=== PATIENT | male | born 1995 | race Caucasian/White ===

== ENCOUNTER 2017-02-03 14:04 | Inpatient (IN) | payer BC, OTHER ==
[~2017-02-03] VITALS: Ht 177.8 cm; Wt 98.0 kg
--- NOTE | ~2017-02-03 | PN ---
Unit #: [id number] #: [id number] Patient: RIK SO [id number] [facility] [address] [place] [address] [id number] I MR#: [id number] NAME: RIK SO ROOM: P208 Age: 21 Sex: M Admission Date: 02/03/2017 : 1995 Attending Physician: Hair Tellez M.D. Admitting Physician: Hair Tellez M.D. Primary Care Physician: Primary Care Physician Shelli PACHECO PROGRESS NOTES DATE OF SERVICE 02/04/2017 DISCUSSION Rik is a 21-year-old male seen on 02/04/2017. Patient requested for larger portion. Reports still feeling sad, depressed, anxious, having withdrawal symptoms. Vital signs 97.9, 67, 18, 120/69. Complete review of systems unremarkable. MENTAL STATUS EXAMINATION General appearance, patient dressed casually. Attention span and concentration fair. Oriented to time, place and person. Mood and affect labile. Speech monotone. Thought process concrete. Patient denied any thoughts of harming self or others but withdrawn, isolative. Recent and remote memory poor. Insight and judgement poor. DIAGNOSES 1. Opiate use disorder severe F11.20. 2. 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 ASSESSMENT/PLAN Advise to continue with current medication and therapeutic protocol. If needed consider further adjustment of medication. Dictated by... Rosaura Bunch/deborah TD: 02/05/2017 04:48 JOB #: [id number] Unit #: [id number] #: [id number] Patient: RIK SO [facility] PROGRESS NOTES Page 1 of 1 X Hair Tellez MD PROGRESS NOTE
--- NOTE | ~2017-02-03 | DS ---
Unit #: [id number] #: [id number] Patient: WAYLON SO [id number] [facility] [address] [place] [address] [id number] I MR#: [id number] NAME: WAYLON SO ROOM: P208 Age: 21 Sex: M Admission Date: 02/03/2017 : 1995 Discharge Date: 02/05/2017 Attending Physician: Hair Tellez M.D. Primary Care Physician: Primary Care Physician No DISCHARGE SUMMARY REASON FOR ADMISSION Depression and substance abuse. DIAGNOSTIC STUDIES LABORATORY RESULTS: Urine drug screen, negative. HOSPITAL COURSE The patient was admitted to inpatient unit on 02/03/2017 and discharged on 02/05/2017. The patient was treated with group therapy, individual therapy, medication management. The patient was responsive to treatment, showed improvement. Subsequently, the patient was discharged with a plan to follow up in outpatient program. DISCHARGE MEDICATIONS None. DISCHARGE DIAGNOSES Psychiatric: Opioid use disorder, severe, F11.20; amphetamine use disorder, severe, F15.20. Secondary diagnosis: Deferred. Medical diagnosis: None. Stressors: Psychosocial stressors. DISCHARGE INSTRUCTIONS The patient to follow up in outpatient clinic as per social services manager. CONDITION ON DISCHARGE The patient was pleasant and cooperative. Denied any psychotic symptom or any suicidal ideation. PROGNOSIS Guarded. DIET AND ACTIVITY As tolerated. Dictated by... Hair Tellez M.D. Unit #: [id number] #: [id number] Patient: WAYLON SO SZC/modl TD: 02/05/2017 17:57 JOB #: [id number] DISCHARGE SUMMARY Page 1 of 1 X Hair Tellez MD X DISCHARGE SUMMARY
--- NOTE | ~2017-02-03 | HP ---
Unit #: [id number] #: [id number] Patient: RIK SO [id number] [place] [address] [id number] I MR#: [id number] NAME: RIK SO ROOM: P208 Age: 21 Sex: M Admission Date: 02/03/2017 : 1995 Attending Physician: Hair Tellez M.D. Admitting Physician: Hair Tellez M.D. Primary Care Physician: Primary Care Physician No HISTORY AND PHYSICAL HISTORY OF PRESENT ILLNESS Rik is a 21 year old admitted to [address] [place] [address] because of his illicit substance abuse which includes opioids and IV meth. He also abuses benzodiazepines. PAST MEDICAL HISTORY 1. History of alcohol abuse. 2. History of illicit substance abuse to include IV meth and opioids taken orally. 3. Psoriasis. PAST SURGICAL HISTORY Nothing reported. ALLERGIES No known drug allergies. SOCIAL HISTORY He does smoke. Drinks alcohol rarely. Admits to poly illicit substance abuse. FAMILY HISTORY Medically noncontributory. REVIEW OF SYSTEMS CONSTITUTIONAL: No fever or chills. HEENT: Denies any sore throat, ear pain or runny nose. CARDIOVASCULAR: Denies chest pain, irregular heart rhythm or palpitations. CHEST: Denies shortness of breath or cough. No hemoptysis. GASTROINTESTINAL: Denies nausea, vomiting, diarrhea or chronic constipation. ENDOCRINE: Denies history of increased thirst or urination. No recent significant weight loss or gain. GENITOURINARY: Denies dysuria, frequency, or hematuria. SKIN: Denies any rashes. HEMATOLOGIC: Denies history of increased bleeding or bruising. MUSCULOSKELETAL: Denies any hot, swollen joints. No generalized muscle pain. NEUROLOGIC: Denies problems with vision or speech. No frequent, severe headaches. No numbness, tingling or weakness in any extremities. Denies loss of bladder or bowel control. CURRENT MEDICATIONS Unit #: [id number] #: [id number] Patient: RIK SO 1. Detox protocol. 2. Nicotine patch 7 mg q. day. PHYSICAL EXAMINATION GENERAL: Alert, well nourished. No apparent distress. VITAL SIGNS: Blood pressure 110/55, heart rate 60, respirations 16, and temperature 98.6. WEIGHT: 216. HEIGHT: 5 feet 10 inches. SKIN: Warm and dry without rash or lesion. HEENT: Normocephalic. TMs not viewed. Oral and nasal passages clear. Conjunctivae clear. PERRLA. EOMs intact. NECK: Supple without lymphadenopathy or thyromegaly. HEART: Regular rate and rhythm without murmur. LUNGS: Clear. ABDOMEN: Soft, nontender. : Not done. EXTREMITIES: No evidence of cyanosis, clubbing or edema. Moves all without focal deficit. NEUROLOGICAL: Grossly within normal limits. Cranial Nerves: II: Visual benito are intact. III, IV AND : Extraocular movements are intact. Pupils are equal, round and reactive to light. V: Facial sensation is grossly normal. VII: Facial movements and expression are normal. VIII: Auditory acuity grossly intact. IX, X: Uvula is midline. Phonation is normal. XI: Patient shrugs shoulders and turns head normally. XII: Tongue protrudes in the midline. Sensory and Motor Function: Sensory and motor sensation is grossly normal. Motor: moves all extremities well. Coordination: Gait is normal. Deep Tendon Reflexes: Intact. IMPRESSION Psychiatric admission. RECOMMENDATIONS PSYCHIATRIC: Per psychiatrist. MEDICAL: I see no contraindication to participate in this facility's activities. MEDICAL PROGNOSIS Good. MEDICAL CONDITION Stable. Dictated by... Elli Dickey P.A.-C. for Rosaura Pinto/albert TD: 02/04/2017 09:09 JOB #: [id number] Unit #: [id number] #: [id number] Patient: RIK SO HISTORY AND PHYSICAL Page 1 of 1 X Elli Dickey HISTORY AND PHYSICAL
--- NOTE | ~2017-02-03 | PA ---
Unit #: [id number] #: [id number] Patient: RIK SO [id number] [facility] [address] [place] [address] [id number] I MR#: [id number] NAME: RIK SO ROOM: P208 Age: 21 Sex: M Admission Date: 02/03/2017 : 1995 Date of Assessment: 02/04/2014 Attending Physician: Hair Tellez M.D. Admitting Physician: Hair Tellez M.D. Primary Care Physician: Primary Care Physician No PSYCHIATRIC ASSESSMENT INFORMANTS The patient reliability, fair informant and chart reliability, good. CHIEF COMPLAINT Detox. HISTORY OF PRESENT ILLNESS Rik is a 21-year-old male, presented with the above-mentioned complaint. The patient has a history of previous admission in 2016. The patient currently reporting needing help with detox. The patient lives by himself. Reported he has been using opioids and amphetamine. The patient reports trying to abstain from drugs several times, but withdrawal symptoms. The patient reported that he wanted to get some help. Feeling sad and depressed, but denied any suicidal or homicidal ideation. Denied any psychotic symptom. The patient scored 15 on CIWA score. The patient reported tobacco use, age of onset 18; alcohol, age of onset 15; marijuana, age of onset 13; opioid, age of onset 16; amphetamine use, age of onset 17; and benzodiazepine use, age of onset 19. Long period of sobriety 3 months. The patient reported no history of blackout, HIV, hepatitis, or withdrawal symptom, but history of IV drug use. Complaining of tremor, muscle cramping, diarrhea, and irritability. Needing inpatient admission at this time for psychiatric stabilization. PAST PSYCHIATRIC HISTORY Remarkable [facility]. FAMILY HISTORY AND SOCIAL HISTORY The patient has a poor support system. Lives by himself. The patient denied any history of any abuse. No legal problems. History of mental illness in maternal and paternal side of the family. MEDICAL HISTORY Unremarkable for any chronic medical illness. Musculoskeletal; muscle strength and tone, no atrophy or abnormal movement. Gait normal. MEDICATION HISTORY None. ALLERGIES No known drug allergies. Unit #: [id number] #: [id number] Patient: RIK SO SUBSTANCE ABUSE HISTORY Please see above. REVIEW OF SYSTEMS HEENT: Eyes, clear. Ears, nose, mouth, and throat; clear. CARDIOVASCULAR: Unremarkable. RESPIRATORY: Unremarkable. GI: Unremarkable. : Unremarkable. SKIN: Unremarkable. LYMPH NODE: Unremarkable. NEUROLOGIC: Unremarkable. ENDOCRINE: Unremarkable. HEMATOLOGIC: Unremarkable. ALLERGIC/IMMUNOLOGIC: Unremarkable. MUSCULOSKELETAL: Muscle strength and tone, no atrophy or abnormal movement. Gait normal. MENTAL STATUS EXAMINATION CONSTITUTIONAL: Measurement of vital signs; temperature 98.9, heart rate 61, respiratory rate 18, and blood pressure 110/55. Height 5 feet 10 inches and weight 216 pounds. GENERAL APPEARANCE: The patient dressed casually. The patient did not show any facial deformity. MUSCULOSKELETAL: Please see above. PSYCHIATRIC EXAMINATION Description of speech; regular rate, normal volume, normal articulation, and coherent. Description of thought process, goal directed. Description of association, intact. Description of abnormal psychotic thinking; the patient denied any hallucination or delusions, but mood lability and substance abuse. Description of the patient's judgment: Concerning everyday activity, poor. Social situation, poor. Concerning psychiatric condition, poor. Complete mental status examination; oriented in time, place, and person. Recent and remote memory, fair. Attention span and concentration, fair. Language, able to name object and repeat phrases. Fund of knowledge, aware of current event and passive vocabulary intact. Mood and affect, sad and dysphoric. Insight and judgment, fair to poor. ASSETS AND LIABILITIES Assets, the patient is articulate and able to take care of his ADL. Liability, history of substance abuse and depression. ADMITTING DIAGNOSES Psychiatric: Opioid use disorder, severe, F11.20; amphetamine use disorder, severe, F15.20; and mood disorder, not otherwise specified, F32.9. Secondary diagnosis: Deferred. Medical diagnosis: None. Stressors: Psychosocial stressors. PSYCHIATRIC PLAN AND TREATMENT GOAL AND DISCHARGE PLAN 1. Advised to admit the patient on the inpatient unit. Provide safe, Unit #: [id number] #: [id number] Patient: RIK SO supportive, and structured environment. 2. Ordered labs; CBC, CMP, UA, and UDS. 3. Detox protocol and detox monitoring. 4. The patient to attend all the programing, group therapy, individual therapy, and chemical dependency group. Treatment goal to attain euthymic mood, gain insight into his problem, and learn coping skills. DISCHARGE PLAN Plan to stabilize the patient and consider followup in outpatient program. ESTIMATED LENGTH OF STAY 5 days. Dictated by... Rosaura Bunch/terrie TD: 02/04/2017 17:59 JOB #: [id number] PSYCHIATRIC ASSESSMENT Page 1 of 1 X Hair Tellez MD X PSYCHIATRIC ASSESSMENT
[2017-02-04 09:46] LABS: BASOPHIL% 0.3 % (0-2.5); EOSINOPHIL# 0.1 X10e3 (0-0.7); EOSINOPHIL% 1.4 % (0.0-7.0); HEMATOCRIT 42.6 % (38.0-50.0); HEMOGLOBIN 14.5 gm/dL (13.0-16.0); LYMPHOCYTE# 1.7 X10e3 (1.0-3.5); LYMPHOCYTE% 38.6 % (17.0-45.0); MEAN CELL VOLUME 84.4 FL (83-96); MEAN CORPUSCULAR HEMOGLOBIN 28.8 PG (28-34); MEAN CORPUSCULAR HGB CONC 34.1 g/dL (30-36); MONOCYTE# 0.3 X10e3 (0-1.0); MONOCYTE% 5.7 % (3.0-12.0); NEUTROPHIL# 2.4 X10e3 (1.5-7.1); PLATELET COUNT 198 X10e3 (140-420); RED BLOOD COUNT 5.04 X10e (3.90-5.60); RED CELL DISTRIBUTION WIDTH 13.6 % (11.0-15.5); WHITE BLOOD COUNT 4.5 X10e3 (4.0-10.5)
[2017-02-04 09:56] LABS: DIFF IND NO
[2017-02-04 10:01] LABS: ALBUMIN SERUM 3.5 g/dL (3.5-5.0); BILIRUBIN,TOTAL 0.4 mg/dL (0.2-2.0); CALCIUM SERUM 8.9 mg/dL (8.4-10.2); CREATININE SERUM 1.3 mg/dL (0.6-1.4); GLOM FILT RATE Estimated 77.5 mL/min (>60); POTASSIUM 3.9 mmol/L (3.5-5.1); PROTEIN TOTAL SERUM 5.8 g/dL (6.0-8.3)
[2017-02-05 09:52] LABS: URINE APPEARANCE CLOUDY; URINE BILIRUBIN NEG (NEG); URINE BLOOD NEG (NEG); URINE COLOR DK YELLOW; URINE GLUCOSE NEG (NEG); URINE KETONE NEG (NEG); URINE LEUKOCYTE ESTERASE NEG (NEG); URINE NITRATE NEG (NEG); URINE PH 7.5 (5-8); URINE PROTEIN NEG (NEG); URINE SPECIFIC GRAVITY 1.013 (1.003-1.035); URINE UROBILINOGEN 0.2 MG/DL (NEG)
[2017-02-05 10:07] LABS: AMPHETAMINE NEG (NEG); BARBITURATES NEG (NEG); BENZODIAZEPINES NEG (NEG); COCAINE NEG (NEG); MARIJUANA NEG (NEG); OPIATES NEG (NEG); TRICYCLIC ANTIDEPRESSANTS NEG (NEG); U METHADONE NEG (NEG)
== END 2017-02-05 12:40 | DRG 897 ==
LOC: P2S 16:30
PROVIDERS: Psychiatry & Neurology Psychiatry
PROC: HZ2ZZZZ Detoxification Services for Substance Abuse Treatment (ICD-10-PCS; principal; 2017-02-04)
DX: F11.20 Opioid dependence, uncomplicated (principal); F15.20 Other stimulant dependence, uncomplicated; Z72.0 Tobacco use
CPT/HCPCS: 80053; 80307; 81003; 85025; 86592